=== PATIENT | female | born 1955 ===

== ENCOUNTER 2017-10-03 06:47 | Outpatient (CLI) | payer OTHER | END 2017-10-03 06:57 | disposition home or self-care (01) | LOC: LAB 06:47 | DX: D50.0 Iron deficiency anemia secondary to blood loss (chronic) (principal); N30.00 Acute cystitis without hematuria; Z13.1 Encounter for screening for diabetes mellitus; Z13.220 Encounter for screening for lipoid disorders; Z13.29 Encounter for screening for other suspected endocrine disorder; Z12.11 Encounter for screening for malignant neoplasm of colon; E55.9 Vitamin D deficiency, unspecified ==

== ENCOUNTER 2017-10-03 07:41 | Outpatient (CLI) | payer OTHER | END 2017-10-03 07:43 | disposition home or self-care (01) | LOC: MAMO-SONO 07:41 | DX: Z12.31 Encounter for screening mammogram for malignant neoplasm of breast (principal) ==